=== PATIENT | male | born 1980 | race Caucasian/White ===

== ENCOUNTER 2017-10-20 13:13 | Emergency (ER) | payer BC ==
[~2017-10-20] VITALS: Ht 180.3 cm; Wt 133.8 kg
[2017-10-20] MEDS ORDERED: ONDANSETRON ODT 4 MG TAB.RAPDIS. PO ONE (13:30)
--- NOTE | 2017-10-20 14:22 | RAD ---
PQRS Compliance Statement: One or more of the following individualized dose reduction techniques were utilized for this examination: 1. Automated exposure control 2. Adjustment of the mA and/or kV according to patient size 3. Use of iterative reconstruction technique CT HEAD WITHOUT CONTRAST History: HEAD INJURY DIZZY VOMITING SINCE LAST NIGHT AT 18:30. Comparison: None. Procedure: Axial images are obtained of the head from the skull base through the vertex without IV contrast. Findings: The ventricles and sulci are normal for the patient's age. No mass-effect, midline shift, hemorrhage, extra-axial fluid collection, or obvious acute infarction is identified. Basilar cisterns are patent. Bone windows demonstrate no acute calvarial abnormality. Mucosal thickening bilateral ethmoid sinuses. The other visualized paranasal sinuses are clear. Mastoid air cells are well aerated. IMPRESSION: No acute intracranial abnormality. Electronically signed by: Rashi Ga MD (10/20/2017 2:17 PM) [id number]
[2017-10-20 14:29] VITALS: BP 180/96
[2017-10-20] MEDS ORDERED: ONDA4TAB10 SL (14:42)
--- NOTE | 2017-10-20 14:43 | PHYS DOC ---
Past Medical History Past Medical History: Hypertension, Kidney Stone, Other Additional Past Medical Histor: Pinched nerves, bulging disks, chronic back pain Past Surgical History: Appendectomy, Cholecystectomy Additional Past Surgical Histo: Lithotripsy for kidney stones Alcohol Use: Rarely Drug Use: None Adult General Chief Complaint Chief Complaint: HEAD INJURY/TRAUMA HPI HPI Patient is a 36 year old male with history of hypertension, chronic back pain, chronic knee pain, who presents today complaining of 10 out of 10 generalize throbbing headache that began yesterday after he fell. Patient states his knee gave out and he fell. He states he has history of chronic low back pain with multiple bulging disks, as well as chronic knee pain. He states his knees usually give out and he falls. He states this time he fell and hit his head on the ground, no loss of consciousness. He is complaining of dizziness, had an episode of nausea and vomiting. Currently alert and oriented 4. Review of Systems Review of Systems Constitutional: Denies fever or chills [] Eyes: Denies change in visual acuity, redness, or eye pain [] HENT: Denies nasal congestion or sore throat [] Respiratory: Denies cough or shortness of breath [] Cardiovascular: No additional information not addressed in HPI [] GI: Reports nausea and vomiting. Denies abdominal pain,bloody stools or diarrhea [] : Denies dysuria or hematuria [] Musculoskeletal: Denies back pain or joint pain [] Integument: Denies rash or skin lesions [] Neurologic: Reports headache, denies focal weakness or sensory changes [] All other systems were reviewed and found to be within normal limits, except as documented in this note. Current Medications Current Medications Current Medications Medications (Trade) Dose Ordered Sig/Luanne Start Time Stop Time Status Last Admin Dose Admin Ondansetron HCl (Zofran Odt) 4 mg 1X ONCE 10/20/17 13:30 10/20/17 13:57 DC 10/20/17 14:03 4 MG Allergies Allergies Allergies Coded Allergies Type Severity Reaction Last Updated Verified NSAIDS (Non-Steroidal Anti-Inflamma Allergy Severe Anaphylaxis 10/20/17 Yes aspirin Allergy Severe Anaphylaxis 10/20/17 Yes Physical Exam Physical Exam Constitutional: Well developed, well nourished, no acute distress, non-toxic appearance. [] HENT: Normocephalic, atraumatic, bilateral external ears normal, oropharynx moist, no oral exudates, nose normal. [] Eyes: PERRLA, EOMI, conjunctiva normal, no discharge. [] Neck: Normal range of motion, no tenderness, supple, no stridor. [] Cardiovascular:Heart rate regular rhythm, no murmur [] Lungs & Thorax: Bilateral breath sounds clear to auscultation [] Abdomen: Bowel sounds normal, soft, no tenderness, no masses, no pulsatile masses. [] Skin: Warm, dry, no erythema, no rash. [] Back: No tenderness, no CVA tenderness. [] Extremities: No tenderness, no cyanosis, no clubbing, ROM intact, no edema. [] Neurologic: Alert and oriented X 3, normal motor function, normal sensory function, no focal deficits noted. Cranial nerves II through XII intact Psychologic: Affect normal, judgement normal, mood normal. [] Current Patient Data Vital Signs Vital Signs Date Time Temp Pulse Resp B/P (MAP) Pulse Ox O2 Delivery O2 Flow Rate FiO2 10/20/17 13:30 98.7 98 17 186/113 (137) 95 Room Air 98.7 EKG EKG [] Radiology/Procedures Radiology/Procedures []PROCEDURE: CT HEAD WO CONTRAST PQRS Compliance Statement: One or more of the following individualized dose reduction techniques were utilized for this examination: 1. Automated exposure control 2. Adjustment of the mA and/or kV according to patient size 3. Use of iterative reconstruction technique CT HEAD WITHOUT CONTRAST History: HEAD INJURY DIZZY VOMITING SINCE LAST NIGHT AT 18:30. Comparison: None. Procedure: Axial images are obtained of the head from the skull base through the vertex without IV contrast. Findings: The ventricles and sulci are normal for the patient's age. No mass-effect, midline shift, hemorrhage, extra-axial fluid collection, or obvious acute infarction is identified. Basilar cisterns are patent. Bone windows demonstrate no acute calvarial abnormality. Mucosal thickening bilateral ethmoid sinuses. The other visualized paranasal sinuses are clear. Mastoid air cells are well aerated. IMPRESSION: No acute intracranial abnormality. Electronically signed by: Rashi Byrd MD (10/20/2017 2:17 PM) [id number] DICTATED and SIGNED BY: RASHI BYRD MD DATE: 10/20/17 1413 Course & Med Decision Making Course & Med Decision Making Pertinent Labs and Imaging studies reviewed. (See chart for details) This is a 36-year-old male patient presenting to the ED today with a headache after falling yesterday and hitting his head on the ground, no loss of consciousness, CT of the head is negative for any acute findings. Patient was complaining of dizziness nausea and vomiting currently alert and oriented 4, in no distress. Likely has concussion, discharged to home with Zofran, Tylenol for pain, Instructed to the floor for couple days, no strenuous activity. Provided instructions return to the ED at any point symptoms, he has new concerning symptoms including but not limited to uncontrolled pain nausea vomiting, excessive sleepiness, confusion. Follow-up with the primary care doctor in the course of this week or next week. Dragon Disclaimer Dragon Disclaimer This electronic medical record was generated, in whole or in part, using a voice recognition dictation system. Departure Departure Impression: Primary Impression: Head injury, closed, with concussion Additional Impression: Fall from standing Disposition: 01 HOME, SELF-CARE Condition: STABLE Referrals: NO PCP (PCP) follow up with your doctor as soon as you can Patient Instructions: Concussion and Brain Injury, [id number] Additional Instructions: You were evaluated in the emergency room and noted to have a concussion. Take it slow, do not do any strenuous activities. Take Zofran as needed for nausea or vomiting. Take Tylenol as needed for pain. Contact your primary care doctor in follow-up in the course of this week or next week. Come back to the emergency room at any point you have new or worsening symptoms including but not limited to uncontrolled pain, uncontrolled nausea vomiting, and confusion, or any other concerning symptoms. Scripts Ondansetron (ZOFRAN ODT) 4 Mg Tab.rapdis 1 TAB SL Q8HRS, #15 TAB Prov: LEAH BOYLE GLOBE CHANGER 10/20/17 Problem Qualifiers Primary Impression: Head injury, closed, with concussion Encounter type: initial encounter Loss of consciousness presence/duration: without LOC Qualified Codes: S06.0X0A - Concussion without loss of consciousness, initial encounter Additional Impression: Fall from standing Encounter type: initial encounter Qualified Codes: W19.XXXA - Unspecified fall, initial encounter RODOLFOLEAH THRASHER GLOBE CHANGER Oct 20, 2017 14:43
== END 2017-10-20 14:49 | disposition home or self-care (01) ==
LOC: ER 13:13
DX: S06.0X9A Concussion with loss of consciousness of unspecified duration, initial encounter (principal); G89.29 Other chronic pain; M54.9 Dorsalgia, unspecified; M25.569 Pain in unspecified knee; R11.2 Nausea with vomiting, unspecified; I10 Essential (primary) hypertension; Z87.442 Personal history of urinary calculi; Z90.49 Acquired absence of other specified parts of digestive tract; Z90.89 Acquired absence of other organs; Z88.6 Allergy status to analgesic agent; Z88.8 Allergy status to other drugs, medicaments and biological substances; W18.30XA Fall on same level, unspecified, initial encounter; Y93.89 Activity, other specified; Y92.89 Other specified places as the place of occurrence of the external cause; Y99.8 Other external cause status
CPT/HCPCS: 70450; 99284; Q0162